=== PATIENT | male | born 1990 | race Caucasian/White ===

== ENCOUNTER 2020-01-02 11:11 | Emergency (ER) | payer OTHER ==
--- NOTE | 2020-01-02 11:42 | EDM.PDOCBH ---
ED HPI GENERAL MEDICAL PROBLEM - General Chief Complaint: Behavioral/Psych Stated Complaint: MEDICAL HEALTH EVAL Time Seen by Provider: 01/02/20 11:26 Source of Information: Reports: Patient, RN Notes Reviewed History Limitations: Reports: No Limitations - History of Present Illness INITIAL COMMENTS - FREE TEXT/NARRATIVE: Patient is a 29-year-old male who presents to the ED for a mental health evaluation. The patient states that he has been having issues with suicidal thoughts since he was young. Patient states that they have been getting worse, and does have a plan to either slit his wrists or his neck to end his life. Patient states that he has had prior suicide attempts in the past, and was hospitalized around 3 to [address] [facility]. Patient states that he is not on any medications, and he is just been finding himself distancing himself from friends and/or family, and realizes that this is not good behavior. He notes that he has a lot of thoughts of his insecurities and self-doubt. Patient notes he moved recently to [place] a few months ago from [place] to be closer to family, and currently resides with his father. Patient states when he was on medications 3 to 4 years ago, he states that he felt that they worked and worked well. Patient has not made any attempts to cut his wrists or neck at this time. 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 The patient states that he is not hearing things or seeing things that are not there, and he would like ultimately to talk with someone about his thoughts and feelings, and get on some psychiatric meds once again. - Related Data Allergies Allergy/AdvReac Type Severity Reaction Status Date / Time cat dander Allergy Difficulty Verified 01/02/20 11:23 Breathing dog dander Allergy Difficulty Verified 01/02/20 11:23 Breathing Home Meds: Home Meds Triamcinolone Acetonide [Triamcinolone Acetonide 0.1% Oint] 1 gm TOP DAILY PRN 01/02/20 [History] buPROPion HCl [Bupropion Xl] 150 mg PO DAILY #32 tab.er.24h 01/02/20 [Rx] Past Medical History Respiratory History: Reports: Asthma Psychiatric History: Reports: Depression, Suicide Attempt, Suicidal Ideation Dermatologic History: Reports: Eczema - Infectious Disease History Infectious Disease History: Reports: Chicken Pox - Past Surgical History Musculoskeletal Surgical History: Reports: Other (See Below) Other Musculoskeletal Surgeries/Procedures:: bilateral wrist sx Social & Family History - Family History Family Medical History: Noncontributory - Tobacco Use Smoking Status *Q: Current Every Day Smoker Years of Tobacco use: 5 Packs/Tins Daily: 0.3 - Caffeine Use Caffeine Use: Reports: None - Recreational Drug Use Recreational Drug Use: No ED ROS GENERAL - Review of Systems Review Of Systems: Comprehensive ROS is negative, except as noted in HPI. Psychiatric: Reports: Depression, Suicidal Ideation. Denies: Agitation, Hallucinations, Homicidal Ideation, Mood Lability ED EXAM, BEHAVIORAL HEALTH - Physical Exam Exam: See Below Exam Limited By: No Limitations General Appearance: Alert, WD/WN, No Apparent Distress Eye Exam: Bilateral Eye: EOMI, Normal Inspection, PERRL Respiratory/Chest: No Respiratory Distress, Lungs Clear, Normal Breath Sounds, No Accessory Muscle Use, Chest Non-Tender Cardiovascular: Normal Peripheral Pulses, Regular Rate, Rhythm, No Murmur GI/Abdominal: Normal Bowel Sounds, Soft, Non-Tender, No Distention, No Mass Extremities: Normal Inspection, Normal Capillary Refill Neurological: Alert, CN II-XII Intact (grossly), No Motor/Sensory Deficits, Oriented x 3 Psychiatric: Alert, Oriented, Depressed Mood, Flat Affect, Withdrawn, Suicidal Plan (has thought about slitting wrist or throat to end his life), Suicidal Thoughts. No: Uncooperative, Homicidal Thoughts, Auditory Hallucinations, Visual Hallucinations, Paranoid Thoughts, Threatening Behavior Skin Exam: Warm, Dry, Intact, Normal color COURSE, BEHAVIORAL HEALTH COMP - Course Vital Signs: Last Vital Signs Temp 97.2 F 01/02/20 11:17 Pulse 56 L 01/02/20 11:17 Resp 18 01/02/20 11:17 BP 136/84 01/02/20 11:17 Pulse Ox 95 01/02/20 11:17 Discharge vs Psych Eval/Treatment:: 01/02/20 11:44 Patient presents to the ED for mental health evaluation. 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 I do believe he would be appropriate for outpatient therapy of sorts to try to get started on medications and follow-up with Dr. Salas in his telehealth clinic if possible. We have called [facility] in [facility] for records of his medications, as the patient states these did help when he was taking them. Once I have the medication list in hand I will call Dr. Salas and consult with him regarding the patient and hopefully get him restarted on the medications and have him follow-up with Dr. Salas sometime soon. 01/02/20 12:50 We did finally receive the medication list from [facility], and it does appear that the last medication is bupropion XR 300mg daily, but started at 150mg. Will try to get a hold of Dr. Salas regarding this and have him follow up with Telehealth clinic. 01/02/20 13:02 I was able to talk with Dr. Salas, and he believes that starting the bupropion is just fine, recommends 150 mg for 4 days, and then increase to 300 after this and he will follow-up with him in clinic sometime towards the end of next week. I will relay this information to the patient and have him set up an appointment. Departure - Departure Time of Disposition: 13:09 Disposition: Home, Self-Care 01 Condition: Good Clinical Impression: Depression with suicidal ideation - Discharge Information *PRESCRIPTION DRUG MONITORING PROGRAM REVIEWED*: No *COPY OF PRESCRIPTION DRUG MONITORING REPORT IN PATIENT LALO: No Prescriptions: buPROPion HCl [Bupropion Xl] 150 mg PO DAILY #32 tab.er.24h Instructions: Living With Depression, Suicidal Feelings: How to Help Yourself Referrals: Bronwyn Deleon PA-C [Primary Care Provider] - Forms: ED Department Discharge Additional Instructions: You were evaluated in the ER today regarding your depression and suicidal ideation. Our psychiatrist, Dr. Salas was consulted on your case, and he does recommend restarting your bupropion, you will be started on 150 mg or 1 tab daily for the next 4 days, then on Tuesday you will need to start taking 2 tabs, 300 mg until you can be reevaluated by Dr. Salas for med adjustment if needed. You have been given roughly 3-week supply of this medication in order to follow-up with Dr. Salas. Dr. Salas is telephone number is [phone], his website is [email or web address], you may use either of these to schedule an appointment with him, sometime for late next week if possible. Please return to the ER at any time if symptoms should change or worsen. We are here 25/04 to help. Sepsis Event Note - Evaluation Sepsis Screening Result: No Definite Risk - Focused Exam Vital Signs: Vital Signs Temp Pulse Resp BP Pulse Ox 01/02/20 11:17 97.2 F 56 L 18 136/84 95 Date Exam was Performed: 01/02/20 Time Exam was Performed: 13:13
== END 2020-01-02 13:20 | disposition home or self-care (01) ==
LOC: JD.ED 11:11
DX: F32.9 Major depressive disorder, single episode, unspecified (principal); J45.909 Unspecified asthma, uncomplicated; F17.210 Nicotine dependence, cigarettes, uncomplicated; Z79.899 Other long term (current) drug therapy; Z91.09 Other allergy status, other than to drugs and biological substances
CPT/HCPCS: 99283; 99284